=== PATIENT | male | born 1960 | race African-American/Black ===

== ENCOUNTER 2018-05-13 10:49 | Day surgery (SDC) | payer OTHER ==
[2018-05-12 14:29] VITALS: BMI 19.1
[2018-05-13 13:46] VITALS: TEMP 97.5
[2018-05-13 14:43] VITALS: BP 122/64; PULSE 68
--- NOTE | 2018-05-16 15:36 | PATH ---
Surgical Pathology Report Patient Name: ZARIA INTERIANO [facility]. Rec. #: [id number] /Age/Gender: 1960 (Age: 58) / M Account: [id number] Location: U-ENDOSCOPY Taken: 05/13/2018 Received: 05/13/2018 Reported: 05/16/2018 Physicians: Prosper Salazar M.D. Specimen(s) Received A: BX HEPATIC FLEXURE POLYPS B: BX CECUM Clinical History Screening colonoscopy Postoperative diagnosis: Colon polyps Final Diagnosis A. HEPATIC FLEXURE, POLYPS, BIOPSY: COLONIC MUCOSA SHOWING MILD SURFACE HYPERPLASTIC CHANGE. B. CECUM, POLYP, BIOPSY: TUBULAR ADENOMA. Electronically Signed Chelly Ribeiro M.D. Gross Description A. Received in formalin, labeled "biopsy hepatic flexure polyp" are 3 lentz, irregular portions of soft tissue ranging from 0.4-0.5 cm. in greatest dimension. The specimens are submitted in toto in one cassette. B. Received in formalin, labeled "biopsy cecal polyp" are 3 lentz, irregular portions of soft tissue ranging from 0.1-0.5 cm. in greatest dimension. The specimens are submitted in toto in one cassette. 05/13/2018 saudi05/13/2018
== END 2018-05-13 15:02 | disposition home or self-care (01) ==
LOC: JASU-ENDO 10:49
PROVIDERS: ATTEND Internal Medicine Gastroenterology
PROC: 0DBL8ZX Excision of Transverse Colon, Via Natural or Artificial Opening Endoscopic, Diagnostic (ICD-10-PCS; principal; 2018-05-13 11:15)
DX: Z12.11 Encounter for screening for malignant neoplasm of colon (principal); K63.5 Polyp of colon; K64.8 Other hemorrhoids; K63.89 Other specified diseases of intestine
CPT/HCPCS: 88305-TC